=== PATIENT | female | born 1960 | race Caucasian/White ===

== ENCOUNTER → 2016-10-07 | Outpatient (CLI) | payer OTHER | LOC: FIMAGING 11:35 | PROVIDERS: ATTEND Family Medicine | DX: Z12.31 Encounter for screening mammogram for malignant neoplasm of breast (principal) | CPT/HCPCS: G0202 ==

== ENCOUNTER → 2016-10-16 | Outpatient (CLI) | payer OTHER | LOC: FIMAGING 14:12 | PROVIDERS: ATTEND Family Medicine | DX: Z12.39 Encounter for other screening for malignant neoplasm of breast (principal); R92.8 Other abnormal and inconclusive findings on diagnostic imaging of breast ==

== ENCOUNTER → 2016-10-23 | Outpatient (CLI) | payer OTHER ==
[~2016-10-23] MED LIST: BUPIVACAINE 0.5% 10 ML SDV ONE; LIDO/EPI 1% **Not for Epidural 20 ML MDV ONE; LIDOCAINE 1% 300 MG/30 ML SDV ONE; THROMBIN (BOVINE) 5,000 UNIT VIAL TP ONE
== END ==
LOC: FIMAGING 07:13
PROVIDERS: ATTEND Family Medicine
PROC: 0HBT3ZX Excision of Right Breast, Percutaneous Approach, Diagnostic (ICD-10-PCS; principal; 2016-10-23)
PROC: BH00ZZZ Plain Radiography of Right Breast (ICD-10-PCS; principal; 2016-10-23)
DX: D24.1 Benign neoplasm of right breast (principal); N60.11 Diffuse cystic mastopathy of right breast; N60.81 Other benign mammary dysplasias of right breast
CPT/HCPCS: G0206

== ENCOUNTER 2016-11-14 06:56 | Day surgery (SDC) | payer OTHER ==
[2016-11-14] MEDS ORDERED: LR 1,000 ML IV ONE (07:22)
[2016-11-14] MEDS ORDERED: LIDOCAINE 1% 2 ML INJ ID PRN (07:22)
[2016-11-14] MEDS ORDERED: LIDOCAINE 1% 2 ML INJ ONE (08:44)
[2016-11-14] MEDS ORDERED: LIDOCAINE 1% 300 MG/30 ML SDV ONE ×2 (08:44→08:53)
[2016-11-14] MEDS ORDERED: BUPIVACAINE/EPI 0.5% 30 ML SDV ONE (08:53)
[2016-11-14] MEDS ORDERED: SODIUM BICARBONATE 10 MEQ/10 ML SYR IVP ONE (08:53)
--- NOTE | 2016-11-14 09:48 | PDHPUP ---
History & Physical Update H&P update statement: This history and physical update is based on an assessment of the patient which was completed after admission or registration (within 24 hours), but prior to the surgery/procedure. H&P update: H&P reviewed & patient examined, no change in patient's condition since H&P completed
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
[2016-11-14] MEDS ORDERED: MIDAZOLAM 2 MG/2 ML VIAL IVP ONE (10:12)
[2016-11-14] MEDS ORDERED: MIDAZOLAM 2 MG/2 ML VIAL ONE (10:20)
[2016-11-14] MEDS ORDERED: fentaNYL 100 MCG/2 ML INJ ONE (10:32)
[2016-11-14] MEDS ORDERED: PROPOFOL/EMULSION 500 MG/50 ML BOTTLE IV ONE (10:32)
[2016-11-14] MEDS ORDERED: LIDOCAINE 2% 5 ML SDV ONE (10:35)
[2016-11-14] MEDS ORDERED: DEXAMETHASONE 4 MG/ML VIAL ONE (10:36)
[2016-11-14] MEDS ORDERED: KETOROLAC 30 MG/1 ML SDV ONE (11:01)
[2016-11-14] MEDS ORDERED: fentaNYL 100 MCG/2 ML INJ IVP PRN (11:04)
[2016-11-14] MEDS ORDERED: ONDANSETRON 4 MG/2 ML VIAL IVP PRN (11:04)
[2016-11-14] MEDS ORDERED: LR 500 ML IV PRN (11:04)
[2016-11-14] MEDS ORDERED: ACETAMINOPHEN 500 MG TAB PO PRN (11:04)
[2016-11-14] MEDS ORDERED: NALOXONE HCL 0.4 MG/ML INJ IVP PRN (11:04)
[2016-11-14] MEDS ORDERED: PROMETHAZINE HCL 25 MG/ML INJ IVP PRN (11:04)
[2016-11-14] MEDS ORDERED: HYDROCODONE/APAP 5/325 TAB PO PRN (11:04)
[2016-11-14] MEDS ORDERED: ALBUTEROL 3 ML DEYVIAL IH PRN (11:04)
--- NOTE | 2016-11-14 11:24 | POSTOPPROG ---
Post Op Note Date of Operation: 11/14/16 Surgeon: Ady Armando Anesthesiologist: Dr. Lawrence Anesthesia: IV Sedation Pre-op Diagnosis: R breast atypical hyperplasia Post-op Diagnosis: same Procedure: R NL lumpectomy Inf/Abcess present in the surg proc area at time of surgery?: No EBL: Minimal
--- NOTE | 2016-11-14 11:27 | POSTANESTH ---
Post Anesthetic Evaluation Cardiovascular Status: Normal, Stable Respiratory Status: Normal, Stable Level of Consciousness/Mental Status: Can Participate in Eval, Mildly Sleepy, Arousable Pain Control: Adequate, Prn Tx Ordered Nausea/Vomiting Control: Adequate, Prn Tx Ordered Complications Possibly Related to Anesthesia: None Noted
--- NOTE | 2016-11-14 12:00 | GOP ---
[f rep st] OPERATIVE REPORT DATE OF OPERATION: 11/14/2016 SURGEON: Kevin Armando MD ANESTHESIA: Monitored anesthetic care. ANESTHESIOLOGIST: Perla Haddad MD. PREOPERATIVE DIAGNOSIS: Right breast atypical hyperplasia. POSTOPERATIVE DIAGNOSIS: Right breast atypical hyperplasia. PROCEDURE PERFORMED: Right needle localization, lumpectomy. FINDINGS: The clip was identified radiologically. No other lesions were noted. ESTIMATED BLOOD LOSS: 20 cc. INDICATIONS: This is a 56-year-old female with a history of right breast biopsy. Risks and benefit s of the procedure were discussed with the patient and her family. Their questions were answered. T hey wish to proceed. DESCRIPTION OF PROCEDURE: The patient was placed in the supine position. After induction of adequa te IV sedation, the patient was prepped and draped in a standard surgical fashion. The area around the needle was anesthetized with 1% lidocaine and 0.5% Marcaine for local anesthesia. An elliptical incision was made around the needle site and carried down to subcutaneous tissue with Bovie cautery . The specimen itself was excised sharply. It was sent to Radiology to confirm clip placement. Th e clip was identified and it was sent on to Pathology for permanent section. In the cavity itself, there appeared to be a small amount of hematoma from the prior biopsy medially. This was excised an d sent as additional medial margin. The area was inspected and good hemostasis was noted. No other lesions were identified. The area was thoroughly irrigated and aspirated. Subcutaneous tissue was approximated with 3-0 Vicryl in an interrupted fashion. Skin was closed with 4-0 Monocryl in a sub cuticular stitch. Wound was sterilely dressed and the patient was taken to PACU in stable condition . SURGEON: Kevin Armando MD. COMPLICATIONS: None. DRAINS: None. /[id number]/MODL
[2016-11-14 12:06] VITALS: PULSE 61; RESP 16
[2016-11-14 12:14] VITALS: BP 140/66; O2SAT 96
[2016-11-14 16:37] VITALS: TEMP 97.9
== END 2016-11-14 13:38 | disposition home or self-care (01) ==
LOC: FSGY 06:56
PROVIDERS: ATTEND Surgery
DX: N60.91 Unspecified benign mammary dysplasia of right breast (principal); Z87.891 Personal history of nicotine dependence
CPT/HCPCS: J1100; J1885; J2250; J2704; J3010

== ENCOUNTER → 2016-12-19 | Outpatient (CLI) | payer OTHER | LOC: BRMIMAGING 12:17 | PROVIDERS: ATTEND Physician Assistant Medical | DX: S82.65XA Nondisplaced fracture of lateral malleolus of left fibula, initial encounter for closed fracture (principal) | CPT/HCPCS: 73610-PO ==

== ENCOUNTER → 2017-01-16 | Outpatient (CLI) | payer OTHER | LOC: BRMIMAGING 11:37 | PROVIDERS: ATTEND Physician Assistant Medical | DX: S82.892A Other fracture of left lower leg, initial encounter for closed fracture (principal) | CPT/HCPCS: 73610-PO ==

== ENCOUNTER → 2017-01-31 | Outpatient (CLI) | payer OTHER | LOC: BRMIMAGING 13:14 | PROVIDERS: ATTEND Family Medicine | DX: Z13.820 Encounter for screening for osteoporosis (principal); Z78.0 Asymptomatic menopausal state; S82.832D Other fracture of upper and lower end of left fibula, subsequent encounter for closed fracture with routine healing; X58.XXXD Exposure to other specified factors, subsequent encounter | CPT/HCPCS: 73610-PO ==

== ENCOUNTER → 2018-01-23 | Outpatient (CLI) | payer OTHER ==
[~2018-01-23] MED LIST changes: -BUPIVACAINE 0.5% 10 ML SDV ONE; +GADOBUTROL 10 ML VIAL IVP ONE; -LIDO/EPI 1% **Not for Epidural 20 ML MDV ONE; -LIDOCAINE 1% 300 MG/30 ML SDV ONE; -THROMBIN (BOVINE) 5,000 UNIT VIAL TP ONE
== END ==
LOC: FIMAGING 07:45
DX: Z48.89 Encounter for other specified surgical aftercare (principal); N60.99 Unspecified benign mammary dysplasia of unspecified breast
CPT/HCPCS: 0159T; 77059; A9585; C8908